=== PATIENT | male | born 1980 | race Two or more races ===

== ENCOUNTER 2025-08-16 14:10 | Inpatient (IN) | payer MEDICAID ==
[~2025-08-16] VITALS: Ht 177.8 cm; Wt 83.9 kg
[2025-08-16] MEDS: IV NS 0.9% 1,000 ML BAG IV ONE ×2 (14:30→15:00)
[2025-08-16 14:42] LABS: PLATELET COUNT (AUTO) 402 K/uL (150-450); RED BLOOD CELL COUNT(AUTO) 5.23 MIL/uL (4.5-6.0); RED CELL DISTRIBUTION WIDTH 14.2 % (11.5-15.0); WHITE BLOOD COUNT (AUTO) 19.5 K/uL (4.3-11.0)
[2025-08-16 14:58] LABS: ASPARTATE AMINOTRANSFERASE 53 U/L (15-37); CALCIUM, SERUM 10.1 mg/dL (8.5-10.1); CREATININE 2.1 mg/dL (0.6-1.3); SODIUM SERUM 145 mmol/L (136-145); TOTAL PROTEIN, SERUM 8.6 g/dL (6.4-8.2); UREA NITROGEN, BLOOD 37 mg/dL (7-18)
[2025-08-16] MEDS: CEFEPIME 1 GM in IV D5W 50 ML IV ONE (15:00)
[2025-08-16 15:42] LABS: ALCOHOL, BLOOD < 3 mg/dL (0-10)
[2025-08-16 16:02] LABS: LACTIC ACID 3.2 mmol/L (0.4-2.0)
[2025-08-16] MEDS ORDERED: ACETAMINOPHEN 325 MG TABLET PO PRN (20:30)
[2025-08-16] MEDS ORDERED: MAG HYDROX/AL HYDROX/SIMETH 30 ML UDC PO PRN (20:30)
[2025-08-16] MEDS ORDERED: ONDANSETRON HCL/PF 4 MG/2 ML VIAL IVP PRN (20:30)
[2025-08-16] MEDS ORDERED: DOSING PER PHARMACY-CEFEPIME IVPB XX PRN (20:30)
[2025-08-16 21:00] VITALS: BP 104/74; TEMP 98.2; O2SAT 95
[2025-08-16] MEDS: HEPARIN SODIUM, PORCINE 5000 UNITS/1 ML VIAL SQ SCH (21:46)
[2025-08-16] MEDS: IV NS 0.9% 1,000 ML IV PRN (22:06)
[2025-08-17] VITALS: BP 118/87; TEMP 97.7; O2SAT 100
[2025-08-17] MEDS ORDERED: CEFEPIME 1 GM VIAL ONE (03:28)
[2025-08-17] MEDS: CEFEPIME 1 GM in IV D5W 50 ML IV ONE (03:30)
[2025-08-17 04:00] VITALS: BP 106/75; TEMP 97.9; O2SAT 100
[2025-08-17 07:02] LABS: CALCIUM, SERUM 8.0 mg/dL (8.5-10.1); CREATININE 1.0 mg/dL (0.6-1.3); PHOSPHORUS 4.2 mg/dL (2.5-4.9); SODIUM SERUM 143.0 mmol/L (136-145); UREA NITROGEN, BLOOD 24.0 mg/dL (7-18)
[2025-08-17 07:03] LABS: PLATELET COUNT (AUTO) 302 K/uL (150-450); RED BLOOD CELL COUNT(AUTO) 4.54 MIL/uL (4.5-6.0); RED CELL DISTRIBUTION WIDTH 14.3 % (11.5-15.0); WHITE BLOOD COUNT (AUTO) 10.3 K/uL (4.3-11.0)
[2025-08-17 12:00] VITALS: BP 99/68; TEMP 98.1; O2SAT 98
[2025-08-17] MEDS ORDERED: CEFEPIME 2 GM in IV D5W 100 ML IV SCH (15:00)
== END 2025-08-17 14:50 | disposition left against medical advice (07) | DRG 720 ==
LOC: ER 14:17 → TELE1 16:48 → MEDSG1 08-17 09:35
PROVIDERS: ADMIT Nurse Practitioner Acute Care; ATTEND Nurse Practitioner Acute Care
DX: A41.9 Sepsis, unspecified organism (principal); N17.0 Acute kidney failure with tubular necrosis; G93.41 Metabolic encephalopathy; E86.0 Dehydration; Z59.00 Homelessness unspecified; F17.200 Nicotine dependence, unspecified, uncomplicated
CPT/HCPCS: 36415; 70450-TC; 71045-TC; 80048-TC; 80076-TC; 82140-TC; 82962-TC; 83605-TC; 83735-TC; 84100-TC; 84484-TC; 85025-TC; 87040-TC; 87081-TC; A4223; G0378; G0480; J0692; J1644; J7030; J7040; J7060